=== PATIENT | female | born 1995 | race Caucasian/White ===

== ENCOUNTER 2020-05-24 22:06 | Emergency (ER) | payer BC, SELFPAY ==
[~2020-05-24] VITALS: Ht 167.6 cm; Wt 72.6 kg
[2020-05-24 22:06] VITALS: BP_SYST 117
--- NOTE | 2020-05-24 22:17 | NUR ---
Patient to ER bed 8 to gown for evaluation. Side rails up.
--- NOTE | 2020-05-24 22:18 | NUR ---
Patient came to ER with family. C/O chest pain x today. Patient had chest pain and allegy , took Benadryl 25 mg around 2100 PM before came to ER. A/O,X4, chest wall pain, pain rate 5/10, radiate to left arm, left shoulder, feel tingling , place patient on color television console monitor and pluse ox.
--- NOTE | 2020-05-24 22:24 | NUR ---
ER Dr. hWite at bedside examining patient.
[2020-05-24 23:56] VITALS: BP_SYST 106
--- NOTE | 2020-05-24 23:56 | NUR ---
Patient given written and verbal discharge instructions and verbalizes understanding. ER MD discussed with patient the results and treatment provided. Patient in stable condition. ID arm band removed. No Rx given. Patient educated on pain management and to follow up with PMD. Pain Scale 0/10. Opportunity for questions provided and answered.
== END 2020-05-24 23:56 | disposition home or self-care (01) ==
LOC: SED 22:06
DX: R07.89 Other chest pain (principal); Z88.2 Allergy status to sulfonamides; Z88.5 Allergy status to narcotic agent
CPT/HCPCS: 71045; 81025; 93005; 99283

== ENCOUNTER 2020-06-09 22:42 | Emergency (ER) | payer BC, SELFPAY ==
[~2020-06-09] VITALS: Ht 167.6 cm; Wt 71.7 kg
[2020-06-09 22:48] VITALS: BP_SYST 119
[2020-06-09] MEDS ORDERED: NACL 0.9% 1,000 ML IV ONE (23:15)
[2020-06-09 23:36] LABS: BILIRUBIN,URINE NEGATIVE (NEGATIVE); BLOOD, URINE NEGATIVE (NEGATIVE); CLARITY/URINE CLEAR (CLEAR); COLOR,URINE YELLOW (YELLOW); GLUCOSE,URINE NEGATIVE (NEGATIVE); KETONES,URINE 2+ (NEGATIVE); LEUKOCYTE ESTERASE ,URINE NEGATIVE (NEGATIVE); NITRITE, URINE NEGATIVE (NEGATIVE); PROTEIN URINE NEGATIVE (NEGATIVE); UROBILINOGEN,URINE 0.2 (0.2-1.0)
[2020-06-09 23:37] LABS: RED CELL DISTRIBUTION WIDTH 12.5 % (9.0-15.0)
[2020-06-09 23:42] LABS: BASOPHILS % (AUTO) 0.3 % (0.0-2.0); EOSINOPHILS # (AUTO) 0.3 K/uL (0.0-0.4); EOSINOPHILS % (AUTO) 1.7 % (0.0-4.0); HEMATOCRIT 42.7 % (36-48); HEMOGLOBIN 14.5 g/dL (12.0-16.0); LYMPHOCYTES # (AUTO) 2.6 K/uL (1.0-5.5); LYMPHOCYTES % (AUTO) 15.5 % (20.5-51.5); MEAN CORPUSCULAR HEMOGLOBIN 32 pg (27-31); MEAN CORPUSCULAR HGB CONC 34 % (32-36); MEAN CORPUSCULAR VOLUME 93 fL (79.0-98.0); MONOCYTES % (AUTO) 5.7 % (1.7-9.3); NEUTROPHILS % (AUTO) 76.8 % (40.0-70.0); PLATELET COUNT (AUTO) 323 K/uL (130-430); RED BLOOD CELL COUNT(AUTO) 4.57 MIL/uL (4.2-6.2); WHITE BLOOD COUNT (AUTO) 16.9 K/uL (4.8-10.8)
[2020-06-09 23:55] LABS: CALCIUM 8.8 mg/dL (8.4-11.0); CREATININE 0.73 mg/dL (0.55-1.30); POTASSIUM 3.1 mmol/L (3.5-5.1)
[2020-06-10 00:01] LABS: ALBUMIN 4.5 g/dL (3.4-4.8); TOTAL BILIRUBIN 0.3 mg/dL (0.0-1.0)
[2020-06-10] MEDS ORDERED: ONDANSETRON HCL 4 MG/2 ML VIAL IVP ONE (01:00)
[2020-06-10] MEDS ORDERED: POTASSIUM CHLORIDE 10 MEQ TAB.PRT.SR PO ONE (01:00)
[2020-06-10] MEDS ORDERED: POTASSIUM CHLORIDE 20 MEQ TAB.PRT.SR PO ONE (01:00)
[2020-06-10] MEDS ORDERED: HYDROcodone/ACETAMIN 5-325 MG TAB (NORCO/ VICODIN) PO ONE (02:00)
[2020-06-10 02:24] VITALS: BP_SYST 99
== END 2020-06-10 02:24 | disposition home or self-care (01) ==
LOC: SED 22:42
DX: R10.32 Left lower quadrant pain (principal); R19.7 Diarrhea, unspecified; Z88.2 Allergy status to sulfonamides; Z88.6 Allergy status to analgesic agent; Z20.822 Contact with and (suspected) exposure to COVID-19
CPT/HCPCS: 36415; 74177; 76376; 80053; 81003; 83605; 83690; 85025; 87040; 87426; 96361; 96374; 99285; J2405; J7030; Q9967